=== PATIENT | female | born 1980 | race African-American/Black ===

== ENCOUNTER 2019-01-11 09:39 | Inpatient (IN) | payer OTHER ==
[~2019-01-11] VITALS: Ht 160 cm; Wt 76.2 kg
[2019-01-11] MEDS ORDERED: LR 1,000 ML IV SCH (09:47)
[2019-01-11] MEDS ORDERED: OXYTOCIN/0.9 % SODIUM CHLORIDE 1,000 ML IV SCH ×2 (09:47→11:16)
[2019-01-11] MEDS ORDERED: TERBUTALINE SULFATE 1 MG/ML VIAL SUBCUT ONE (10:00)
[2019-01-11] MEDS ORDERED: NALBUPHINE HCL 10 MG/ML AMP IM PRN (10:00)
[2019-01-11] MEDS ORDERED: CLINDAMYCIN 900 MG in D5W 100 ML IV ONE (10:00)
[2019-01-11] MEDS ORDERED: NALBUPHINE HCL 10 MG/ML AMP IVP PRN (10:00)
[2019-01-11] MEDS ORDERED: OXYTOCIN/0.9 % SODIUM CHLORIDE 1,000 ML IV ONE ×3 (10:05→11:16)
[2019-01-11 10:10] LABS: BASOPHILS # (AUTO) 0.1 K/uL (0.0-0.2); BASOPHILS % (AUTO) 0.7 % (0.0-2.0); EOSINOPHILS % (AUTO) 0.5 % (0.0-4.0); HEMOGLOBIN 9.2 g/dL (12.0-16.0); LYMPHOCYTES # (AUTO) 1.6 K/uL (1.0-5.5); MEAN CORPUSCULAR HEMOGLOBIN 26 pg (27-31); MEAN CORPUSCULAR HGB CONC 33 % (32-36); MEAN CORPUSCULAR VOLUME 79 fL (79.0-98.0); MONOCYTES # (AUTO) 0.7 K/uL (0.0-1.0); NEUTROPHILS # (AUTO) 5.7 K/uL (1.8-7.7); NEUTROPHILS % (AUTO) 69.8 % (40.0-70.0); PLATELET COUNT (AUTO) 231 K/uL (130-430); RED BLOOD CELL COUNT(AUTO) 3.56 MIL/uL (4.2-6.2); RED CELL DISTRIBUTION WIDTH 15.9 % (9.0-15.0); WHITE BLOOD COUNT (AUTO) 8.1 K/uL (4.8-10.8)
[2019-01-11] MEDS ORDERED: CLINDAMYCIN 900 mg/50mL D5W 50 ML IV ONE (10:16)
[2019-01-11 10:24] VITALS: BP_SYST 116
[2019-01-11] MEDS ORDERED: DIPH-TET-PERTUS Vaccine 0.5 ML VIAL (ADACEL) I.M. PRN (11:30)
[2019-01-11] MEDS ORDERED: HYDROCORTISONE 0.5%, 28.35 GM TOPICAL CREAM TP PRN (11:30)
[2019-01-11] MEDS ORDERED: DERMOPLAST SPRAY TP PRN (11:30)
[2019-01-11] MEDS ORDERED: HYDROcodone/ACETAMIN 5-325 MG TAB (NORCO/ VICODIN) PO PRN (11:30)
[2019-01-11] MEDS ORDERED: RHO(D) IMMUNE GLOBULIN/MALTOSE 1500 UNITS/1.3 ML (WINHRO) IM PRN (11:30)
[2019-01-11] MEDS ORDERED: WITCH HAZEL LEAF 1 MED.PAD MED.PAD TP PRN (11:30)
[2019-01-11] MEDS ORDERED: ANUSOL 1 EA SUPP.RECT (PREPARATION H) RC PRN (11:30)
[2019-01-11] MEDS ORDERED: MEASLES,MUMPS&RUBELLA VACC/PF 12500 UNIT/0.5 ML VIAL SUBQ PRN (11:30)
[2019-01-11] MEDS ORDERED: SENNOSIDES/DOCUSATE SODIUM 1 TAB TABLET(SENOKOT-S) PO PRN (11:30)
[2019-01-11] MEDS ORDERED: OXYCODONE/ACETAMINOPHEN 5-325 TABLET PO PRN (11:30)
[2019-01-11] MEDS ORDERED: DOCUSATE SODIUM 100 MG CAPSULE PO PRN (11:30)
[2019-01-11] MEDS ORDERED: LANOLIN 7 GM OINT. TP PRN (11:30)
[2019-01-11] MEDS ORDERED: OXYCODONE/ACETAMINOPHEN 5-325 TABLET ONE (11:36)
[2019-01-11] MEDS: IBUPROFEN 600 MG TABLET PO SCH ×3 (12:30→23:30)
[2019-01-11] MEDS: OXYCODONE/ACETAMINOPHEN 5-325 TABLET PO PRN (15:49)
[2019-01-11] MEDS ORDERED: TEMAZEPAM 15 MG CAPSULE PO PRN (21:00)
[2019-01-11] MEDS ORDERED: CLINDAMYCIN 900 MG in D5W 100 ML IV SCH (22:00)
[2019-01-12] MEDS: IBUPROFEN 600 MG TABLET PO SCH ×2 (06:05→12:10)
[2019-01-12 07:41] LABS: HEMATOCRIT 25.9 % (36-48); HEMOGLOBIN 8.3 g/dL (12.0-16.0)
[2019-01-12] MEDS: OXYCODONE/ACETAMINOPHEN 5-325 TABLET PO PRN (08:37)
[2019-01-13] MEDS: IBUPROFEN 600 MG TABLET PO SCH ×2 (00:42→06:24)
[2019-01-13] MEDS: OXYCODONE/ACETAMINOPHEN 5-325 TABLET PO PRN (00:43)
== END 2019-01-13 10:40 | disposition home or self-care (01) | DRG 807 ==
LOC: SPU 09:39
PROVIDERS: ADMIT Obstetrics & Gynecology; ATTEND Obstetrics & Gynecology
PROC: 10E0XZZ Delivery of Products of Conception, External Approach (ICD-10-PCS; principal; 2019-01-11)
DX: O80 Encounter for full-term uncomplicated delivery (principal); Z37.0 Single live birth; Z3A.39 39 weeks gestation of pregnancy
CPT/HCPCS: 36415; 85018-TC; 85025; 86592; 86870; 86886; 86900; 86901; J2590; J3490; J7060